=== PATIENT | male | born 1940 | race Caucasian/White ===

== ENCOUNTER → 2017-04-02 | Outpatient (CLI) | payer OTHER | LOC: FIMAGING 14:39 | PROVIDERS: ATTEND Internal Medicine Critical Care Medicine | DX: J43.9 Emphysema, unspecified (principal); I31.1 Chronic constrictive pericarditis; J94.8 Other specified pleural conditions; Z87.891 Personal history of nicotine dependence | CPT/HCPCS: 71250-PO ==